=== PATIENT | male | born 1980 | race Caucasian/White ===

== ENCOUNTER 2017-12-08 09:26 | Outpatient (CLI) | payer BC ==
--- NOTE | 2017-12-08 12:13 | ULT ---
HEPATIC ULTRASOUND WITH HEPATIC DOPPLER EVALUATION: 12/08/2017 HISTORY: Abnormal liver function tests. FINDINGS: The liver demonstrates increased echogenicity, suggesting diffuse fatty infiltrate. There are two hy poechoic masses seen within the right hepatic lobe, the largest measuring 2.3 cm and the smaller lesi on measuring 2.5 cm in maximal dimensions. There is echogenic material in the gallbladder lumen, sug gesting sludge. There are also more circumscribed, mobile echogenic foci in the gallbladder lumen, w hich did demonstrate mobility on turning of the patient; however, there is now shadowing to suggest t hat these echogenicity foci represent calculi, and findings could be related to prominent sludge. Th ere is no gallbladder wall thickening or pericholecystic fluid. The common duct measures 0.3 cm in d iameter, which is within normal limits. The spleen, visualized portions of the pancreas, and visualized portions of the IVC demonstrate a nor mal sonographic appearance. Hepatic Doppler evaluation with spectral analysis and color-flow evaluation demonstrates normal direc tional flow within the portal, hepatic, and splenic veins. Doppler evaluation of the splenic artery and hepatic artery demonstrate arterial waveforms. IMPRESSION: 1. Small, hypoechoic masses in the right hepatic lobe. These do not have characteristics of a heman gioma, and CT scan of the abdomen, following hepatic mass protocol, is recommended. 2. Fatty infiltration of the liver. 3. Sludge within the gallbladder lumen with larger mobile echogenic foci present, which may also rep resent sludge, as there is no posterior shadowing to suggest gallbladder calculi. Follow-up right up per quadrant ultrasound is recommended in four weeks. 4. Normal directional flow is seen within the portal, splenic, and hepatic veins. POS: [facility]
== END 2017-12-08 09:27 | disposition home or self-care (01) ==
LOC: ULT 09:26
PROVIDERS: ATTEND Internal Medicine Gastroenterology
DX: K21.9 Gastro-esophageal reflux disease without esophagitis (principal); R94.5 Abnormal results of liver function studies; E83.119 Hemochromatosis, unspecified; K76.0 Fatty (change of) liver, not elsewhere classified; R16.0 Hepatomegaly, not elsewhere classified; K82.8 Other specified diseases of gallbladder; D75.1 Secondary polycythemia
CPT/HCPCS: 76705; 82728

== ENCOUNTER 2021-04-15 17:30 | Outpatient (CLI) | payer BC | END 2021-04-15 17:31 | disposition home or self-care (01) | LOC: SLEEPLAB 17:30 | PROVIDERS: ATTEND Family Medicine | DX: G47.33 Obstructive sleep apnea (adult) (pediatric) (principal); R06.83 Snoring; G47.00 Insomnia, unspecified; I10 Essential (primary) hypertension; K21.9 Gastro-esophageal reflux disease without esophagitis | CPT/HCPCS: 95806 ==

== ENCOUNTER 2024-05-04 09:09 | Observation (INO) | payer BC ==
[2024-05-04] MEDS ORDERED: Ondansetron PF 4 MG/2 ML Vial ONE ×2 (10:06→11:40)
[2024-05-04] MEDS ORDERED: Mag-Al 1200 mg/1200 mg/30 ML UDCUP ONE ×2 (10:06→12:27)
[2024-05-04] MEDS ORDERED: Lidocaine Viscous Sol 2% 15 ml UD Cup ONE ×2 (10:06→12:27)
[2024-05-04] MEDS ORDERED: Ketorolac Tromethamine 30 MG (1 mL) VIAL ONE ×2 (10:06→12:27)
[2024-05-04] MEDS ORDERED: Famotidine/PF 20 mg/2ml Vial ONE ×2 (10:06→12:27)
[2024-05-04 10:07] LABS: #Basophils Less than 0.03 10x3/uL (0.0-0.2); %Basophils 0.2 % (0.0-1.0); %Eosinophils 0.8 % (0.0-10.0); %Lymphocytes 5.1 % (21.0-51.0); %Monocytes 2.9 % (0.0-10.0); %Neutrophils 90.4 % (42.0-75.0); Hematocrit 47.8 % (42.0-52.0); Hemoglobin 16.6 g/dL (14.0-18.0); Mean Corpuscular HGB CONC 34.7 g/dL (32.0-36.0); Mean Corpuscular Hemoglobin 30.9 pg (27.0-31.0); Mean Platelet Volume 10.2 fL (7.4-10.4); Platelet Count 370 10x3/uL (130-400); RBC Distribution Width 13.8 % (11.5-14.5); Red Blood Cell (RBC) Count 5.37 mill/uL (4.70-6.10)
[2024-05-04 10:30] LABS: ALT (SGPT) 45 U/L (Less than 45); AST (SGOT) 31 U/L (11-34); Albumin 4.4 g/dL (3.1-4.5); Alkaline Phosphatase 81 U/L (40-110); Anion Gap 15 mmol/L (10-20); BUN (Urea Nitrogen) 7 mg/dL (8.9-20.6); Bilirubin, Total 1.1 mg/dL (0.3-1.2); Calc. Creatinine Clearance 0 mL/min (70-130); Calcium 10.4 mg/dL (7.8-10.44); Carbon Dioxide 21 mmol/L (22-29); Chloride 106 mmol/L (98-107); Estimated GFR 113; Globulin 3.5 g/dL (2.4-3.5); Glucose 142 mg/dL (70-105); Lipase 19 U/L (8-78); Magnesium 1.9 mg/dL (1.6-2.6); Potassium 4.3 mmol/L (3.5-5.1); Protein, Total 7.9 g/dL (6.0-8.3); Sodium 138 mmol/L (136-145)
[2024-05-04 10:35] LABS: Troponin I Less than 0.010 ng/mL (< 0.028)
[2024-05-04] MEDS ORDERED: Promethazine HCl 25 MG/ML VIAL ONE (11:59)
[2024-05-04 12:35] LABS: Acetaminophen Less than 10 mcg/mL (Less than 10); Alcohol Less than 10.0 mg/dL (Less than 10); Salicylate Less than 8.0 mg/dL (Less than 8.0)
[2024-05-04] MEDS ORDERED: diphenhydrAMINE 50 MG/ML VIAL ONE (14:16)
[2024-05-04] MEDS ORDERED: Prochlorperazine 10 MG/2 ML VIAL ONE (14:17)
[2024-05-04 15:07] LABS: Bacteria/HPF None Seen HPF (None Seen); Bilirubin Negative (Negative); Blood, Urine Negative (Negative); CAUTI Indications for Culture Pelvic or flank pain; Clarity Clear (Clear); Glucose, Urine (Dipstick) Normal (Negative); Ketone, Urine 20 mg/dL (Negative); Leukocyte Negative Leu/uL (Negative); Nitrite Negative (Negative); Protein, Urine (Dipstick) Negative (Neg-Trace); RBC/HPF None Seen HPF (0-3); Specific Gravity, Urine 1.019 (1.002-1.036); Squamous Epithelial None Seen HPF (0-3); Urobilinogen Normal mg/dL (Less than 2)
[2024-05-04 15:10] LABS: Urine Culture Reflex No No
[2024-05-04 15:14] LABS: Amphetamine Not Detected (NotDetected); Barbiturates Screen Not Detected (NotDetected); Benzodiazepine Screen Not Detected (NotDetected); Cocaine Metabolite Screen Not Detected (NotDetected); Methadone Not Detected (NotDetected); Methamphetamine Not Detected (NotDetected); Opiate Screen Not Detected (NotDetected); Oxycodone Screen Not Detected (NotDetected); Phencyclidine (PCP) Not Detected (NotDetected); THC/Cannabinoid Screen Not Detected (NotDetected); Tricyclic Screen Not Detected (NotDetected)
[2024-05-04] MEDS ORDERED: Iopamidol-370 76% 500 ML MDV (1 ML CHARGE) ONE (15:19)
[2024-05-04] MEDS ORDERED: Dextrose 50% Abboject 50 ML SYRINGE SLOW IVP PRN (15:59)
[2024-05-04] MEDS ORDERED: Dextrose 5% in Water 1,000 ML IV PRN (15:59)
[2024-05-04] MEDS ORDERED: Glucagon 1 MG/ML KIT IM PRN (15:59)
[2024-05-04] MEDS ORDERED: Ondansetron ODT 4 MG TAB PO PRN (15:59)
[2024-05-04] MEDS ORDERED: Insulin Lispro 100 UNIT/ML 10 ML VIAL SC PRN (16:02)
[2024-05-04] MEDS ORDERED: Prochlorperazine Edisylate 10 MG in Sodium Chloride 0.9% 50 ML IVPB PRN (16:35)
[2024-05-04 16:47] LABS: Iron 130 ug/dL (65-175); Iron Binding Capacity, Total 341 mcg/dL (261-462)
[2024-05-04] MEDS: Lactated Ringer's 1,000 ML IV SCH ×2 (17:11→18:14)
[2024-05-04 17:32] VITALS: BMI 29.0
[2024-05-04] MEDS ORDERED: Electrolyte Replacement Protocol 1 EACH FS PRN (18:15)
[2024-05-04] MEDS: Thiamine HCl 200 MG/2 ML VIAL SLOW IVP SCH (18:50)
[2024-05-04] MEDS: Magnesium 2 GM/50 ML(in water) 2 GM in Premix 1 BAG IVPB SCH (20:37)
[2024-05-05 07:48] LABS: #Basophils Less than 0.03 10x3/uL (0.0-0.2); %Basophils 0.3 % (0.0-1.0); %Eosinophils 2.9 % (0.0-10.0); %Lymphocytes 15.2 % (21.0-51.0); %Monocytes 11.1 % (0.0-10.0); Hemoglobin 12.8 g/dL (14.0-18.0); Mean Corpuscular HGB CONC 32.8 g/dL (32.0-36.0); Mean Corpuscular Hemoglobin 30.5 pg (27.0-31.0); Mean Corpuscular Volume 92.9 fL (78.0-98.0); Mean Platelet Volume 9.7 fL (7.4-10.4); Platelet Count 293 10x3/uL (130-400); RBC Distribution Width 14.1 % (11.5-14.5)
[2024-05-05 07:52] LABS: ALT (SGPT) 181 U/L (Less than 45); AST (SGOT) 134 U/L (11-34); Albumin 3.1 g/dL (3.1-4.5); Alkaline Phosphatase 55 U/L (40-110); Anion Gap 10 mmol/L (10-20); BUN (Urea Nitrogen) 8 mg/dL (8.9-20.6); Bilirubin, Total 1.3 mg/dL (0.3-1.2); Calc. Creatinine Clearance 171 mL/min (70-130); Calcium 8.8 mg/dL (7.8-10.44); Carbon Dioxide 25 mmol/L (22-29); Chloride 108 mmol/L (98-107); Estimated GFR 112; Globulin 2.5 g/dL (2.4-3.5); Glucose 109 mg/dL (70-105); Potassium 4.2 mmol/L (3.5-5.1); Protein, Total 5.6 g/dL (6.0-8.3); Sodium 139 mmol/L (136-145)
[2024-05-05] MEDS: Rosuvastatin 20 MG TAB PO SCH (09:04)
[2024-05-05] MEDS: Multivit, Therapeutic 1 TAB PO SCH (09:04)
[2024-05-05] MEDS: Lisinopril 10 MG TAB PO SCH (09:04)
[2024-05-05] MEDS: Enoxaparin 40 MG (0.4 mL) SYRINGE SC SCH (09:05)
[2024-05-05] MEDS: Folic Acid 1 MG TAB PO SCH (09:05)
[2024-05-05] MEDS: Pantoprazole 40 MG VIAL IVP SCH (09:10)
[2024-05-05 12:45] VITALS: BP 143/87; TEMP 98.1
[2024-05-06] MEDS ORDERED: FLU (Fluarix Triv) TS24-25(6MOS UP)/PF 45 MCG/0.5 ML Syringe IM ONE (09:00)
[2024-05-07] MEDS ORDERED: Thiamine 100 MG TAB PO SCH (18:15)
== END 2024-05-05 12:16 | disposition home or self-care (01) ==
LOC: ERS 09:09 → T4-A 15:29
PROVIDERS: ADMIT Student in an Organized Health Care Education/Training Program; ATTEND Student in an Organized Health Care Education/Training Program
DX: R11.2 Nausea with vomiting, unspecified (principal); R10.13 Epigastric pain; E86.0 Dehydration; E11.9 Type 2 diabetes mellitus without complications; E78.5 Hyperlipidemia, unspecified; E83.119 Hemochromatosis, unspecified; I10 Essential (primary) hypertension; K21.9 Gastro-esophageal reflux disease without esophagitis; D72.829 Elevated white blood cell count, unspecified; R74.01 Elevation of levels of liver transaminase levels; R63.4 Abnormal weight loss; F17.210 Nicotine dependence, cigarettes, uncomplicated; F10.10 Alcohol abuse, uncomplicated; Y90.0 Blood alcohol level of less than 20 mg/100 ml; Z68.29 Body mass index [BMI] 29.0-29.9, adult; Z79.85 Long-term (current) use of injectable non-insulin antidiabetic drugs; Z79.899 Other long term (current) drug therapy
CPT/HCPCS: 36415; 36416; 74177; 76705; 80053; 80306; 80307; 81001; 82728; 83540; 83550; 83605; 83690; 83735; 84484; 85025; 93005; 96361; 96365; 96375; 96376; G0378; J0780; J1200; J1885; J2405; J2470; J2550; J3411; J3475; J3490; J7120; Q9967